=== PATIENT | female | born 1945 | race Caucasian/White ===

== ENCOUNTER 2017-05-07 18:03 | Emergency (ER) | payer SELFPAY ==
[~2017-05-07] VITALS: Ht 154.9 cm; Wt 59.9 kg
[~2017-05-07 18:03] MED LIST: ADVAIR 250-501 EACH IH; ALPRAZOLAM0.5 M1 PO; COUMADIN5 MG PO; FLUOXETINE HCL20 M1 PO; HYDREA500 MG; LEVOFLOXACIN750 MG PO; LEVOTHYROXINE50 MCG PO; PREDNISONE20 MG PO; TESSALON PERLE100 MG; TRAZODONE HCL100 MG PO; VENTOLIN HFA18 GM INH; VITAMIN D3400 UNIT; VITAMIN E1000 UNIT
[2017-05-07] MEDS ORDERED: SODIUM CHLORIDE 0.9% 500ML 500 ML IV STA (18:11)
[2017-05-07] MEDS ORDERED: IPRATROPIUM BROMIDE 0.02% 2.5 ML NEB NEB STA (18:11)
[2017-05-07] MEDS ORDERED: ALBUTEROL SULF 0.083% NEB SOLN 3 ML NEB NEB ONE (19:00)
--- NOTE | 2017-05-07 20:10 | Diagnostic Imaging Report ---
EXAMINATION: CHEST SINGLE (PORTABLE) INDICATION: Shortness of breath COMPARISON: 11/12/2013 FINDINGS: TUBES and LINES: None. LUNGS: Lungs are well inflated. Lungs are clear. There is no evidence of pneumonia or pulmonary edema. PLEURA: No pleural effusion or pneumothorax. HEART AND MEDIASTINUM: The cardiomediastinal silhouette is unremarkable. BONES AND SOFT TISSUES: No acute osseous lesion. Soft tissues are unremarkable. UPPER ABDOMEN: No free air under the diaphragm. IMPRESSION: No acute thoracic abnormality. Signed by: Dr. Jesse Madrigal M.D. on 05/07/2017 8:07 PM
== END 2017-05-07 19:42 | disposition left against medical advice (07) ==
LOC: ER 18:03
DX: R55 Syncope and collapse (principal); R53.1 Weakness; I10 Essential (primary) hypertension; D69.6 Thrombocytopenia, unspecified
CPT/HCPCS: 71045; 99282

== ENCOUNTER → 2021-01-02 | Day surgery (SDC) | payer MEDICARE, BC ==
[2020-12-30 10:42] LABS: BASOPHILS # (AUTO) 0.1 (0.0-0.1); BASOPHILS % 0.7 % (0.0-1.0); EOSINOPHILS # (AUTO) 0.1 (0.0-0.4); EOSINOPHILS % 1.2 % (0.0-6.0); HEMATOCRIT 38.8 % (34.2-44.1); HEMOGLOBIN 10.9 g/dL (12.0-16.0); LYMPHOCYTES # (AUTO) 1.6 (1.0-3.2); LYMPHOCYTES % 16.5 % (18.0-39.1); MEAN CORPUSCULAR HEMOGLOBIN 24.2 pg (28-32); MEAN CORPUSCULAR HGB CONC 28.1 g/dL (31-35); MEAN CORPUSCULAR VOLUME 86.2 fL (81-99); MONOCYTES # (AUTO) 0.9 (0.2-0.8); MONOCYTES % 9.7 % (4.4-11.3); NEUTROPHILS # (AUTO) 6.7 (2.1-6.9); NEUTROPHILS % 70.1 % (38.7-80.0); PLATELET COUNT 269 x10e3/uL (140-360); RED CELL DISTRIBUTION WIDTH 20.3 % (11.7-14.4)
[~2021-01-02] MED LIST changes: +ELIQUIS5 MG PO
[2021-01-02 08:35] VITALS: BP 106/74
== END | disposition home or self-care (01) ==
LOC: OR 06:04
PROVIDERS: ATTEND Internal Medicine Gastroenterology
DX: K29.70 Gastritis, unspecified, without bleeding (principal); K31.7 Polyp of stomach and duodenum; K20.90 Esophagitis, unspecified without bleeding; K44.9 Diaphragmatic hernia without obstruction or gangrene; D75.81 Myelofibrosis; D64.9 Anemia, unspecified; F32.9 Major depressive disorder, single episode, unspecified; Z88.0 Allergy status to penicillin; Z88.8 Allergy status to other drugs, medicaments and biological substances; Z88.6 Allergy status to analgesic agent; Z91.041 Radiographic dye allergy status; Z01.810 Encounter for preprocedural cardiovascular examination; Z01.812 Encounter for preprocedural laboratory examination; Z20.822 Contact with and (suspected) exposure to COVID-19; Z79.899 Other long term (current) drug therapy; Z86.73 Personal history of transient ischemic attack (TIA), and cerebral infarction without residual deficits; Z86.711 Personal history of pulmonary embolism
CPT/HCPCS: 36415; 43239; 43450; 85025; 88305; 88312; 93005; C9113; U0002